=== PATIENT | female | born 1940 | race Caucasian/White ===

== ENCOUNTER 2017-02-14 10:14 | Emergency (ER) | payer MEDICARE, OTHER ==
[~2017-02-14] VITALS: Ht 162.6 cm; Wt 63.5 kg
[~2017-02-14 10:14] MED LIST: CELE200 PO; HYDR-2768 PO; SIMV5TAB32 PO; TELM1TAB56 PO
[2017-02-14 10:19] VITALS: BP 171/93; PULSE 82; RESP 16; TEMP 98.2; O2SAT 100
[2017-02-14] MEDS ORDERED: SIMV40TA PO (12:47)
[2017-02-14] MEDS ORDERED: LOSA25TA PO (12:47)
[2017-02-14] MEDS ORDERED: NIFE1TAB PO (12:47)
[2017-02-14] MEDS ORDERED: SODIUM CHLORIDE 0.9% FLUSH 10 ML FLUSH IVF PRN (13:30)
--- NOTE | 2017-02-14 13:31 | RADHPO ---
EXAM DATE/TIME: 02/14/2017 13:25 [facility] COMPARISON: No previous studies available for comparison. INDICATIONS : Syncope. MEDICAL HISTORY : None. SURGICAL HISTORY : None. ENCOUNTER: Initial ACUITY: 2 days PAIN SCORE: 0/10 LOCATION: Bilateral chest FINDINGS: A single view of the chest demonstrates the lungs to be symmetrically aerated without evidence of mas s, infiltrate or effusion. The cardiomediastinal contours are unremarkable. Osseous structures are intact. CONCLUSION: No acute cardiac pulmonary process. Baltazar Arciniega MD on February 14, 2017 at 13:29 Board Certified Radiologist. This report was verified electronically.
--- NOTE | 2017-02-14 13:33 | PD ---
HPI Chief Complaint: Fall Time Seen by Provider: 13:09 Travel History International Travel<30 days: No Contact w/Intl Traveler<30days: No Traveled to known affect area: No History of Present Illness HPI This patient this morning was feeling dizzy and lightheaded. She had some general malaise. She went into the bathroom to shower. Was feeling lightheaded and the shower so went to get out and she had a syncopal episode. She fell and struck the left side of her face and head on the ground. She complains of headache and facial pain and neck pain. Severity is moderate. Duration 4 hours. No alleviating factors. She takes no blood thinners. Did not have any chest pain. Denies cardiac history. PFSH Past Medical History Cancer: Yes (SKIN) Cardiovascular Problems: No High Cholesterol: Yes Diabetes: No Glaucoma: No Hepatitis: No Hiatal Hernia: No Hypertension: Yes Medical other: Yes (GERD,ELEVATED CHOLESTEROL) Respiratory: No Thyroid Disease: Yes Influenza Vaccination: No Past Surgical History Eye Surgery: Yes (RIGHT EYE LID) Oral Surgery: Yes (WISDOM TEETH EXTRACTED) Pacemaker: No Other Surgery: Yes Social History Alcohol Use: No Tobacco Use: No Substance Use: No Allergies-Medications (Allergen,Severity, Reaction): Coded Allergies: No Known Allergies (Verified , 02/14/17) Reported Meds & Prescriptions Reported Meds & Active Scripts Active Reported Nifedipine ER 24 HR (Nifedipine) 90 Mg Tab 90 Mg PO DAILY Simvastatin 40 Mg Tab 40 Mg PO HS Losartan (Losartan Potassium) 25 Mg Tab 25 Mg PO DAILY Review of Systems General / Constitutional: No: Fever Eyes: No: Visual changes HENT: Positive: Headaches Cardiovascular: Positive: Syncope, No: Chest Pain or Discomfort Respiratory: No: Shortness of Breath Gastrointestinal: No: Abdominal Pain Genitourinary: No: Dysuria Musculoskeletal: No: Pain Skin: No Rash Neurologic: Positive: Dizziness, Syncope, Headache, No: Weakness Psychiatric: No: Depression Endocrine: No: Polydipsia Hematologic/Lymphatic: No: Easy Bruising Physical Exam Narrative GENERAL: Well-nourished, well-developed patient in no apparent distress. SKIN: Warm and dry. HEAD: Has left-sided periorbital ecchymosis. Normocephalic. There is some tenderness but no crepitus about the orbit on the left side. EYES: Pupils equal and round. No scleral icterus. No injection or drainage. ENT: No nasal bleeding or discharge. Mucous membranes pink and moist. NECK: Trachea midline. No JVD. No midline tenderness. No midline tenderness CARDIOVASCULAR: Regular rate and rhythm. No murmur appreciated. RESPIRATORY: No accessory muscle use. Clear to auscultation. Breath sounds equal bilaterally. GASTROINTESTINAL: Abdomen soft, non-tender, nondistended. Hepatic and splenic margins not palpable. MUSCULOSKELETAL: No obvious deformities. No clubbing. No cyanosis. No edema. NEUROLOGICAL: Awake and alert. No obvious cranial nerve deficits. Motor grossly within normal limits. Normal speech. PSYCHIATRIC: Appropriate mood and affect; insight and judgment normal. Data Data Last Documented VS Vital Signs Date Time Temp Pulse Resp B/P Pulse Ox O2 Delivery O2 Flow Rate FiO2 02/14/17 13:45 96 Room Air 02/14/17 13:44 70 16 100/74 02/14/17 10:19 98.2 Orders Electrocardiogram (02/14/17 13:18) Basic Metabolic Panel (Bmp) (02/14/17 13:18) Complete Blood Count With Diff (02/14/17 13:18) Act Partial Throm Time (Ptt) (02/14/17 13:18) Prothrombin Time / Inr (Pt) (02/14/17 13:18) Chest, Single Ap (02/14/17 13:18) Ct Brain W/O Iv Contrast(Rout) (02/14/17 13:18) Ct Cerv Spine W/O Contrast (02/14/17 13:18) Ecg Monitoring (02/14/17 13:18) Iv Access Insert/Monitor (02/14/17 13:18) Oximetry (02/14/17 13:18) Sodium Chloride 0.9% Flush (Ns Flush) (02/14/17 13:30) Ct Facial Bones W/O Iv Cont (02/14/17 ) Labs Laboratory Tests Test 02/14/17 13:35 White Blood Count 9.8 TH/MM3 Red Blood Count 4.98 MIL/MM3 Hemoglobin 14.8 GM/DL Hematocrit 43.5 % Mean Corpuscular Volume 87.3 FL Mean Corpuscular Hemoglobin 29.6 PG Mean Corpuscular Hemoglobin 33.9 % Concent Red Cell Distribution Width 12.7 % Platelet Count 213 TH/MM3 Mean Platelet Volume 7.4 FL Neutrophils (%) (Auto) 91.1 % Lymphocytes (%) (Auto) 5.7 % Monocytes (%) (Auto) 2.2 % Eosinophils (%) (Auto) 0.0 % Basophils (%) (Auto) 1.0 % Neutrophils # (Auto) 8.9 TH/MM3 Lymphocytes # (Auto) 0.6 TH/MM3 Monocytes # (Auto) 0.2 TH/MM3 Eosinophils # (Auto) 0.0 TH/MM3 Basophils # (Auto) 0.1 TH/MM3 CBC Comment DIFF FINAL Differential Comment Prothrombin Time 11.2 SEC Prothromb Time International 1.0 RATIO Ratio Activated Partial 26.5 SEC Thromboplast Time Sodium Level 144 MEQ/L Potassium Level 3.6 MEQ/L Chloride Level 110 MEQ/L Carbon Dioxide Level 25.1 MEQ/L Anion Gap 9 MEQ/L Blood Urea Nitrogen 18 MG/DL Creatinine 0.83 MG/DL Estimat Glomerular Filtration 67 ML/MIN Rate Random Glucose 121 MG/DL Calcium Level 9.4 MG/DL [facility] Medical Decision Making Medical Screen Exam Complete: Yes Emergency Medical Condition: Yes Medical Record Reviewed: Yes Differential Diagnosis Intracranial hemorrhage, orbital fracture, cardiac arrhythmia Narrative Course I have reviewed the patient's electronic medical record. IV placed Extended cardiac monitoring reveals sinus rhythm without ectopy I reviewed her EKG which looks like normal sinus rhythm without ectopy I reviewed her chest x-ray which is normal Brain CT is normal Cervical spine CT shows no fracture but arthritic change Facial bone CT reveals no fracture Patient is neurologically intact Patient has been a symptomatic throughout her stay. CBC is normal Metabolic profile is normal From an injury standpoint she is stable for outpatient follow-up but I was concerned about her cause of syncope. Workup does not reveal that. Given her age I was discussing telemetry observation for syncope but the patient is adamant about being discharged. She will not stay in the hospital. She says she will call her doctor for follow-up next week. I advised her not to drive. She feels fine and wants to go home. Diagnosis Primary Impression: Syncope Qualified Code: R55 - Syncope, unspecified syncope type Additional Impression: Head injury due to trauma Qualified Code: S09.90XA - Head injury due to trauma, initial encounter Med/Other Pt SpecificInfo: Other Disposition: 01 DISCHARGE HOME Condition: Stable Payam Jasso MD Feb 14, 2017 13:33
[2017-02-14 13:41] LABS: AUTOMATED NEUTROPHIL # 8.9 TH/MM3 (1.8-7.7); BASOPHIL # 0.1 TH/MM3 (0-0.2); HEMATOCRIT 43.5 % (35.0-46.0); HEMO FLAGS DIFF FINAL; LYMPH % 5.7 % (9.0-44.0); LYMPHOCYTE # 0.6 TH/MM3 (1.0-4.8); MEAN CELL VOLUME 87.3 FL (80.0-100.0); MEAN CORPUSCULAR HEMOGLOBIN 29.6 PG (27.0-34.0); MEAN CORPUSCULAR HGB CONC 33.9 % (32.0-36.0); MONO % 2.2 % (0.0-8.0); NEUT % 91.1 % (16.0-70.0); PLATELET COUNT 213 TH/MM3 (150-450); RED BLOOD COUNT 4.98 MIL/MM3 (4.00-5.30); RED CELL DISTRIBUTION WIDTH 12.7 % (11.6-17.2); WHITE BLOOD COUNT 9.8 TH/MM3 (4.0-11.0)
[2017-02-14 13:44] VITALS: BP 100/74; PULSE 70; RESP 16; O2SAT 97
[2017-02-14 13:45] VITALS: O2SAT 96
[2017-02-14 13:50] LABS: POTASSIUM 3.6 MEQ/L (3.5-5.1)
[2017-02-14 13:53] LABS: BICARBONATE 25.1 MEQ/L (21.0-32.0)
[2017-02-14 13:56] LABS: APTT (PATIENT) 26.5 SEC (24.3-30.1); PROTHROMBIN TIME - PATIENT 11.2 SEC (9.8-11.6)
--- NOTE | 2017-02-14 14:46 | RADHPO ---
EXAM DATE/TIME: 02/14/2017 14:29 [facility] COMPARISON: No previous studies available for comparison. INDICATIONS : Trauma. Fell in the shower this morning. Left head, neck and facial pain. Bruising around left eye . RADIATION DOSE: 68.05 CTDIvol (mGy) MEDICAL HISTORY : Hypertension. SURGICAL HISTORY : None. ENCOUNTER: Initial ACUITY: 1 day PAIN SCALE: 3/10 LOCATION: Left cranial TECHNIQUE: Multiple contiguous axial images were obtained of the head. Using automated exposure control and adj ustment of the mA and/or kV according to patient size, radiation dose was kept as low as reasonably a chievable to obtain optimal diagnostic quality images. FINDINGS: CEREBRUM: The ventricles are normal for age. No evidence of midline shift, mass lesion, hemorrhage or acute in farction. No extra-axial fluid collections are seen. POSTERIOR FOSSA: The cerebellum and brainstem are intact. The 4th ventricle is midline. The cerebellopontine angle i s unremarkable. EXTRACRANIAL: The visualized portion of the orbits is intact. SKULL: The calvaria is intact. No evidence of skull fracture. CONCLUSION: No acute disease. Amari Gerber MD on February 14, 2017 at 14:44 Board Certified Radiologist. This report was verified electronically.
--- NOTE | 2017-02-14 14:56 | RADHPO ---
EXAM DATE/TIME: 02/14/2017 14:29 [facility] COMPARISON: No previous studies available for comparison. INDICATIONS : Trauma. Fell in the shower this morning. Left head, neck and facial pain. Bruising around left eye . RADIATION DOSE: 25.41 CTDIvol (mGy) MEDICAL HISTORY : Hypertension. SURGICAL HISTORY : None. ENCOUNTER: Initial ACUITY: 1 day PAIN SCORE: 5/10 LOCATION: Left facial TECHNIQUE: Volumetric scanning of the facial bones was performed. Using automated exposure control and adjustme nt of the mA and/or kV according to patient size, radiation dose was kept as low as reasonably achiev able to obtain optimal diagnostic quality images. FINDINGS: ORBITS: The orbital and infraorbital osseous structures are intact. The retroconal structures have a normal configuration. No radiopaque foreign bodies are seen. NASAL BONE: The nasal bone and maxillary spine are intact ZYGOMATIC ARCHES: Symmetric without evidence of fracture. SINUSES: The maxillary, ethmoid and frontal sinuses are intact. Minimal mucosal thickening is noted within the right maxillary sinus. No air-fluid levels seen. NASAL CAVITY: The nasal septum is intact and midline. The lacrimal ducts are intact. Left-sided pancho bullosa is noted. SOFT TISSUES: No radiopaque foreign bodies seen. No soft-tissue swelling is seen. INTRACRANIAL: No intracranial air seen. CRIBIFORM PLATE: Grossly intact. CONCLUSION: 1. No facial bone fracture noted. 2. Minimal mucosal thickening within the right maxillary sinus. 3. Left-sided pancho bullosa. Amari Gerber MD on February 14, 2017 at 14:51 Board Certified Radiologist. This report was verified electronically.
--- NOTE | 2017-02-14 14:59 | RADHPO ---
EXAM DATE/TIME: 02/14/2017 14:29 [facility] COMPARISON: No previous studies available for comparison. INDICATIONS : Trauma. Fell in the shower this morning. Left head, neck and facial pain. Bruising around left eye . RADIATION DOSE: 25.14 CTDIvol (mGy) MEDICAL HISTORY : Hypertension. SURGICAL HISTORY : None. ENCOUNTER: Initial ACUITY: 1 day PAIN SCALE: 4/10 LOCATION: Left neck TECHNIQUE: Volumetric scanning of the cervical spine was performed. Multiplanar reconstructions in the sagittal, coronal and oblique axial planes were performed. Using automated exposure control and adjustment o f the mA and/or kV according to patient size, radiation dose was kept as low as reasonably achievable to obtain optimal diagnostic quality images. FINDINGS: Thin section axial imaging of the cervical spine was performed. Sagittal and coronal imaging demonstrate adequate alignment of the vertebral bodies. There are degene rated discs throughout the cervical spine. There moderate degenerative changes in the atlantodens phil nt. No acute fracture is seen. C1/2: There moderate degenerative changes in the atlantodens joint with a small pannus formation. C2/3: The thecal space is adequate. The neural foramina are adequate. No significant abnormality is identif ied. C3/4: There is advanced facet arthritis on the left with degenerative facet hypertrophy. There is mild bony foraminal narrowing on the left. There is a small central disc bulge. The residual thecal space and foramina on the right are adequate. C4/5: There is a degenerated disc. The thecal space and foramina are adequate. There is facet arthritis marily aterally. C5/6: There is a degenerated disc with diffuse osteophytic ridging from the vertebral endplate. This efface s the ventral thecal sac. The residual thecal space appears narrowed but adequate. There is mild fora jenna narrowing bilaterally. C6/7: There is a degenerated disc. There is facet arthritis bilaterally. The thecal space and foramina appe ar adequate. C7/T1: The thecal space is adequate. The neural foramina are adequate. No significant abnormality is identif ied. CONCLUSION: 1. Degenerative changes throughout the cervical spine as above. No acute fracture of the cervical spi ne is identified. Angel Villaseñor MD on February 14, 2017 at 14:55 Board Certified Radiologist. This report was verified electronically.
[2017-02-14 16:01] VITALS: BP 141/62
--- NOTE | 2017-02-15 15:49 | EKG ---
Date Performed: 02/14/2017 Time Performed: 13:24:30 PTAGE: 76 years EKG: Sinus rhythm Possible left anterior fascicular block Borderline ECG NO PREVIOUS TRACING DOCTOR: Jayme Lema Interpretating Date/Time 02/15/2017 15:47:12
== END 2017-02-14 16:03 | disposition home or self-care (01) ==
LOC: PHED 10:14
DX: R55 Syncope and collapse (principal); S09.90XA Unspecified injury of head, initial encounter; I10 Essential (primary) hypertension; W18.39XA Other fall on same level, initial encounter; Y92.002 Bathroom of unspecified non-institutional (private) residence as the place of occurrence of the external cause
CPT/HCPCS: 70450; 70486; 71010; 72125; 80048; 85025; 85610; 85730; 93005